=== PATIENT | female | born 1940 | race Caucasian/White ===

== ENCOUNTER 2019-10-20 07:20 | Emergency (ER) | payer MEDICAID, SELFPAY ==
[2019-10-20 07:23] VITALS: BP 178/83; PULSE 71; RESP 16; TEMP 36.6; O2SAT 98; BMI 25.7
--- NOTE | 2019-10-20 07:42 | US_ITS ---
STUDY: ULTRASOUND TRANSVAGINAL CLINICAL: Female, 79 years old. Dysfunctional uterine bleeding. TECHNIQUE: Transvaginal COMPARISON: None. FINDINGS: Normal uterine size measuring 5.4 x 4.8 x 2.1 cm. Anteverted. There are no myometrial masses. Vascular calcifications are noted. Normal endometrial thickness measuring 1 mm. There are no endometrial masses, and there is no fluid in the endometrial cavity. Normal uterine cervix. Right ovary obscured by bowel gas. Left ovary 5.5 x 4.3 x 3.8 cm. It contains a 4.0 x 4.0 x 3.4 cm simple cyst. Appropriate blood flow to the adjacent ovarian parenchyma. There is no free fluid in the pelvis. US/Transvaginal Non- IMPRESSION: No etiology for dysfunctional vaginal bleeding identified. 4.0 cm simple cyst left ovary. Unless prior''s are available showing this is chronic and unchanged, suggest follow-up ultrasound in 4-6 months to ensure this is not enlarging. Statistically this is most likely benign and incidental. Right ovary obscured. Electronically Signed: Christo Carmichael, at 9:59 EST Tel , Service support ,
--- NOTE | 2019-10-20 08:03 | ED.DCSUM_ITS ---
History of Present Illness Chief Complaint: Vag Bleeding Informant: Patient, Family Onset: Today Maximum Severity: Mild Narrative: Patient complains of vaginal bleeding spotting she noted this morning, she has history of a pessary, [employer] evaluation about 6 months ago unremarkable she is having no abdominal pain no vomiting no fever cough, normal bowel bladder habits no bruising no blood per rectum or urine Past Medical History - Allergies and Home Meds Allergies/Adverse Reactions: Allergies Unable to Assess Allergy (Verified 10/20/19 07:23) pt states there are a couple but unsure what they are Primary Care Physician: Jahaira Webb MD [Primary Care Provider] - Past Medical History: - Smoking Status: Never smoker Review of Systems ROS: - Fibroid disorder and as above General: Reports: - - Gentle spotting only. Denies: Chills, Fever, Sweats Eyes: Denies: Visual changes - bilaterally, Diplopia ENT: Denies: Rhinorrhea, Sore throat Cardiovascular: Denies: Chest pain, Palpitations Respiratory: Denies: Dyspnea, Cough, Dyspnea on exertion Gastrointestinal: Denies: Abdominal pain, Nausea, Vomiting, Diarrhea, Melena, Hematochezia Genitourinary: Denies: Dysuria, Hematuria, Frequency Musculoskeletal: Denies: Back pain, Extremity Pain Skin: Denies: Rash, Wounds Neurological: Denies: Headache, Weakness, Numbness Physical Exam Vital Signs/Narrative: Vital Signs Temp Pulse Resp BP Pulse Ox 10/20/19 07:23 97.9 F 71 16 178/83 H 98 General: Well nourished, Well developed, No Acute Distress Head: Normocephalic, Atraumatic Eyes: Perrl, EOMI ENT: Moist mucous membranes, No rhinorrhea Neck: Supple, Nontender Cardiovascular: Regular rate, Regular rhythm, No murmurs Respiratory: No distress, CTA bilaterally, Chest nontender Abdomen: Soft, Nontender, Nondistended, Normal bowel sounds : - - Pelvic exam with nurse pad hand shows an abraded area over the right labia minor Sabrina, more toward the vaginal mucosa, pessary was removed there was no obvious signs of pain or bleeding in the vaginal vault her cervix appeared very atrophied hard to identify there was no obvious mass pain bleeding or fullness to bimanual exam Back: Nontender, Normal Inspection Extremities: Nontender, No edema Skin: Normal color, No rash Neurological: Alert, Oriented x3, Cranial nerves II-XII grossly intact, Normal Strength, Normal Sensation Psychological: Normal affect, Normal Mood Diagnostic/Tx/Re-eval - Medical Decision Making Clinical exam and vital signs are unremarkable she is resting comfortably bed she has absent abdominal pain she did show me her vaginal pad and there is a spot of blood on it brown now she is currently not having any major bleeding no pain she did remove the pessary and this is what caused the bleeding, I expl ained to her she would likely require pelvic exam she was not really excited about that screening labs ultrasound Patient screening labs ultrasound unremarkable she is resting comfortably bed explained all the above to her at this time she will avoid using the pessary, she will use antibiotic ointment to the vaginal mucosa follow-up with her photographic process worker in a few days and return for change in symptoms, she indicates she will generally have no trouble not using her pessary Stable home Final impression vaginal bleeding spotting, vaginal abrasion use of pessary ED Disposition - Plan for ED Patient: Diagnosis: Vaginal bleeding Instructions: VAGINAL TEAR (Non-obstetric) Referrals: Jahaira Webb MD [Primary Care Provider] - Additional Instructions: Do not use your pessary try to use antibiotic ointment to vaginal tissue, follow-up with her photographic process worker in a few days
[2019-10-20 08:10] LABS: Absolute Lymphocyte Count 1.93 X10^3/uL (0.83-4.51); Absolute Neutrophil Count 3.8 X10^3/uL (2.0-7.7); Basophil# 0.06 X10^3/uL; Basophil% 0.9 % (0-1); Eosinophil# 0.06 X10^3/uL; Eosinophils% 0.9 % (0-5); Hematocrit 38.1 % (37-47); Hemoglobin 12.6 g/dL (12.0-15.0); Lymphocyte # 1.93 X10^3/ul (4.0); Lymphocyte % 29.6 % (19-41); Mean Corp Hgb Conc 33.1 g/dL (32-36); Mean Corpuscular Hgb 30.4 pg (27.0-32.0); Monocyte# 0.62 X10^3/uL; Monocyte% 9.5 % (0-10); NRBC Flagged by Analyzer 0 % (0-5); Neutrophil # 3.81 X10^3/uL (2.7-7.7); Neutrophil % 58.5 % (47-70); Platelet Count 233 K/mm3 (150-450); RBC Distribution Width CV 13.7 % (11.6-14.6); RBC Distribution Width SD 46.6 fl (35.1-43.9); Red Blood Count 4.14 M/mm3 (4.2-5.4); White Blood Count 6.5 K/mm3 (4.4-11.0)
[2019-10-20] MEDS: 0.9% Normal Saline 1,000 ML 125 ML IV (08:14)
[2019-10-20 08:23] LABS: International Normalized Ratio 1.2; Prothrombin Time (Protime)PT. 15.3 SECONDS (11.7-14.9)
[2019-10-20 08:44] LABS: Anion Gap 4 (5-15); BUN 20 mg/dL (7-18); BUN/Creat Ratio 28.4 RATIO (10-20); Calcium,Total 8.8 mg/dL (8.5-10.1); Chloride 105 mmol/L (98-107); EST Glomerular Filtration Rate 85 mL/min (>60); Est Glom Filt Rate - Afr Amer 103 mL/min (>60); Estimated Creatinine Clearance 36.08 ml/min; Glucose 100 mg/dL (74-106); Potassium 4.6 mmol/L (3.5-5.1); Sodium Level 137 mmol/L (136-145)
[2019-10-20 10:38] VITALS: BP 131/67; PULSE 71; RESP 15; O2SAT 98
== END 2019-10-20 10:40 | disposition home or self-care (01) ==
PROVIDERS: Emergency Provider Emergency Medicine; Family Provider Internal Medicine; PCP Internal Medicine
DX: N93.9 Abnormal uterine and vaginal bleeding, unspecified (principal); S30.814A Abrasion of vagina and vulva, initial encounter; Y76.2 Prosthetic and other implants, materials and accessory obstetric and gynecological devices associated with adverse incidents; Y93.9 Activity, unspecified; Y92.9 Unspecified place or not applicable
CPT/HCPCS: 76830; 80048; 85025; 85610; 96360; 96361; 99283; J7030

== ENCOUNTER → 2020-08-18 16:24 | Outpatient (CLI) | payer MEDICAID, SELFPAY ==
--- NOTE | 2020-08-18 16:29 | CT_ITS ---
ACR Level 3 findings have been noted. An addendum which confirms receipt of the report will follow. HISTORY: LEFT KNEE VALGUS DEFORMITY-MAYI PROTOCOL TECHNIQUE: Noncontrast bone protocol CT of the left lower extremity was performed without contrast utilizing preoperative MAYI protocol. 2D reformats were performed by the technologist. Number of images including paperwork: [id number]. A radiation dose optimization technique was used for this scan. COMPARISON: None FINDINGS: BONES: No acute fracture. JOINTS: No subluxation. Degenerative changes noted in the visible spine, and left sacroiliac joint, symphysis pubis, left hip, left knee and left ankle. Degenerative changes are severe in the medial and patellofemoral compartment of the knee. Large left knee joint effusion. Multiple large joint bodies. SOFT TISSUES: Unremarkable. FOREIGN BODY: No radiopaque foreign body. PELVIC ORGANS: 4 cm left ovarian cyst. Senescent calcifications of the uterus. Pessary partially visualized. Small fat-containing umbilical hernia partially visible. CT/Extremity Lower without Contra IMPRESSION: No acute fracture or subluxation. Large left knee joint effusion. Left hip and left knee osteoarthritis. 4 cm left ovarian cyst. Gynecologic evaluation recommended. Individualized dose optimization techniques were used for this CT. at 0132 Reported and signed by: Hemalatha Kumari MD Electronically Signed: Hemalatha Kumari MD at 1:32 EDT Tel , Service support ,
== END ==
PROVIDERS: PCP Internal Medicine; Referring Provider Physician Assistant; Visit Provider Physician Assistant
DX: M21.062 Valgus deformity, not elsewhere classified, left knee (principal)
CPT/HCPCS: 73700

== ENCOUNTER 2020-09-21 11:04 | Observation (INO) | payer MEDICAID, SELFPAY ==
--- NOTE | 2020-08-24 10:17 | EKG12_ITS ---
Test Reason : PRE OP Blood Pressure : / mmHG Vent. Rate : 060 BPM Atrial Rate : 060 BPM P-R Int : 160 ms QRS Dur : 072 ms QT Int : 402 ms P-R-T Axes : 053 -04 069 degrees QTc Int : 402 ms Normal sinus rhythm Normal ECG Confirmed by GAGE MONTES, DINORAH ([id number]), greeting card editor EUSEBIA GONZALEZ ([id number]) on 08/25/2020 9:10:19 AM Referred By: Isaiah Méndez Confirmed By:DINORAH ALMONTE MD
[2020-08-24 11:15] LABS: Absolute Lymphocyte Count 1.93 X10^3/uL (0.83-4.51); Absolute Neutrophil Count 3.1 X10^3/uL (2.0-7.7); Basophil# 0.07 X10^3/uL; Basophil% 1.2 % (0-1); Eosinophil# 0.06 X10^3/uL; Hematocrit 37.5 % (37-47); Lymphocyte # 1.93 X10^3/ul (4.0); Lymphocyte % 32.1 % (19-41); Mean Corpuscular Volume 96.9 fL (81-99); Mean Platelet Vol. 10.6 fl (6.2-12.0); Monocyte# 0.79 X10^3/uL; Monocyte% 13.1 % (0-10); NRBC Flagged by Analyzer 0 % (0-5); Neutrophil # 3.13 X10^3/uL (2.7-7.7); Neutrophil % 51.9 % (47-70); Platelet Count 261 K/mm3 (150-450); RBC Distribution Width CV 15.1 % (11.6-14.6); RBC Distribution Width SD 53.7 fl (35.1-43.9); Red Blood Count 3.87 M/mm3 (4.2-5.4)
[2020-08-24 11:32] LABS: International Normalized Ratio 1.1; Prothrombin Time (Protime)PT. 13.6 SECONDS (11.7-14.9)
[2020-08-24 11:33] LABS: Partial Thromboplast Time 38.9 Seconds (24.1-36.2)
[2020-08-24 12:00] LABS: Anion Gap 6 (5-15); BUN 19 mg/dL (7-18); BUN/Creat Ratio 29.4 RATIO (10-20); Chloride 98 mmol/L (98-107); Creatinine, Serum 0.65 mg/dL (0.55-1.02); EST Glomerular Filtration Rate 94 mL/min (>60); Est Glom Filt Rate - Afr Amer 113 mL/min (>60); Glucose 90 mg/dL (74-106); Potassium 4.5 mmol/L (3.5-5.1); Sodium Level 134 mmol/L (136-145)
[2020-08-24 12:06] LABS: AST(SGOT) 34 U/L (15-37); Alanine Aminotransfer ALT/SGPT 36 U/L (13-56); Albumin, Serum 3.5 g/dL (3.2-5.0); Alkaline Phosphatase 63 U/L (45-117); Bilirubin, Direct 0.15 mg/dL (0.00-0.30); Globulin 3.8 g/dL (2.2-4.2); Magnesium 2.2 mg/dL (1.6-2.6); Protein, Total 7.3 g/dL (6.4-8.2); Thyroid Stim Hormone (TSH) 8.62 uIU/mL (0.358-3.74)
[2020-09-21] VITALS (12 sets, daily range): BP systolic 137–178; BP diastolic 53–85; PULSE 61–79; RESP 16–18; TEMP 36.1–36.4; O2SAT 94–100; BMI 25.9
[2020-09-21] MEDS: Acetaminophen 500 MG Tablet 1000 MG PO ×3 (10:42→20:34)
[2020-09-21] MEDS: Gabapentin 600 MG Tablet PO (10:42)
[2020-09-21] MEDS: Lactated Ringers 1,000 ML 100 ML IV (10:44)
[2020-09-21 11:00] LABS: Bedside Glucose 72 mg/dL (70-110)
[2020-09-21] MEDS: Cefazolin 2 GM in 0.9% Normal Saline 100 ML IV (11:08)
--- NOTE | 2020-09-21 11:30 | KNEE_PTH ---
PATIENT: TONY WILKINS LOC: [facility] U#:[id number] AGE/SX: 80/F ROOM: [facility]305 RE09/21/[address]: Dr. Isaiah Méndez DO : 1940 BED: 1 DIS: 09/22/2020 SPEC #: [id number] RECD: 09/21/20 14:52 STATUS: CUCO REQ #: [id number] SARWAT: 09/21/20 11:[address]: Isaiah Méndez DEPT: SURGICAL PATHOLOGY RECD BY: Kaitlyn Foy ENTERED: 09/22/20 07:45 SP TYPE: TOTAL KNEE OTHR DR: Dr. Jahaira Webb MD Tissues: Knee, NOS Procedures: Decalcification bone/plaque Surgery Specimen Level IV HEADER OPERATION: ERAS, total knee replacement robotic arm assist PRE-OP DIAGNOSIS: Osteoarthritis left knee TISSUE SUBMITTED: Left knee bone and soft tissue MICROSCOPIC DIAGNOSIS Bone and soft tissue of left knee, total knee resection: Severe degenerative joint disease. Loose body. AM:mukund 09/25/20 MICROSCOPIC DESCRIPTION Slides are reviewed. GROSS DESCRIPTION Received is one container designated bone and soft tissue left knee. The specimen consists of multiple fragments of sanon-yellow bone. No soft tissue is identified. Multiple pieces of bone consistent with loose bodies are also noted. The pieces of bone including loose bodies measure in aggregate 11 x 10 x 3 cm. A number of bony fragments contain articular surfaces consistent with tibial plateau and femoral condyle and displaying prominent osteophyte formation, eburnation, and bone erosion. Director Utilization Management sections are submitted in two cassettes after decalcification. Cassette 2 contains a section from loose bodies. / SJ:mukund 09/22/20 TC: 5 CPT: 69347, 17715
[2020-09-21] MEDS: Lactated Ringers 1,000 ML 125 ML IV (12:31)
--- NOTE | 2020-09-21 12:46 | PCM.OPRPT ---
Report of Operation Date of Procedure: 09/21/20 Pre-Operative Diagnosis: OA left knee Post-Operative Diagnosis: same Surgery/Procedure Performed:: Left TKR transportation superintendent: Jeancarlos Mariano Type of Anesthesia:: Spinal Anesthesiologist: Angel Ames Specimen's removed: bone - Admit VTE Documentation VTE Present on Admission: No VTE Mechan Device Prophylaxis: SCD's, Thigh High WANDY Hose VTE Pharm Prophylaxis ordered?: Yes
--- NOTE | 2020-09-21 13:48 | RAD_ITS ---
STUDY: X-RAY - LEFT KNEE REASON FOR EXAM: Female, 80 years old. Post op left knee TECHNIQUE: 2 view(s) of the knee. COMPARISON: None. FINDINGS: Normal visualized distal femur. Normal visualized proximal tibia and fibula. Normal proximal tibiofibular articulation. The patient is status post total knee replacement. There is good alignment. Postoperative soft tissue changes. RAD/Knee 1 or 2 Views IMPRESSION: Status post total knee replacement. There is good alignment. Postoperative soft tissue changes. Electronically Signed: Isiah Gama, at 14:20 EST , Service support ,
[2020-09-21 14:40] LABS: Hematocrit 33.5 % (37-47); Mean Corp Hgb Conc 32.8 g/dL (32-36); Mean Corpuscular Hgb 31.6 pg (27.0-32.0); Mean Corpuscular Volume 96.3 fL (81-99); Mean Platelet Vol. 9.7 fl (6.2-12.0); Platelet Count 272 K/mm3 (150-450); RBC Distribution Width SD 49.2 fl (35.1-43.9); Red Blood Count 3.48 M/mm3 (4.2-5.4); White Blood Count 8.4 K/mm3 (4.4-11.0)
[2020-09-21 14:59] LABS: Anion Gap 8 (5-15); BUN 8 mg/dL (7-18); BUN/Creat Ratio 14.9 RATIO (10-20); Calcium,Total 8.7 mg/dL (8.5-10.1); Chloride 104 mmol/L (98-107); Creatinine, Serum 0.54 mg/dL (0.55-1.02); EST Glomerular Filtration Rate 116 mL/min (>60); Est Glom Filt Rate - Afr Amer 141 mL/min (>60); Estimated Creatinine Clearance 35.49 ml/min; Glucose 118 mg/dL (74-106); Potassium 3.8 mmol/L (3.5-5.1); Sodium Level 138 mmol/L (136-145)
[2020-09-21] MEDS: Aspirin 81 MG TAB.CHEW PO (16:37)
[2020-09-21] MEDS: Cefazolin 1 GM/50 ML BAG IV (19:15)
[2020-09-21] MEDS: Ondansetron 4 MG/2 ML Vial IV (19:29)
[2020-09-21] MEDS: Senna/Docusate Sodium 1 Tablet 2 TABLET PO (20:34)
[2020-09-21] MEDS: Atorvastatin Calcium 10 MG Tablet PO (20:34)
[2020-09-22 03:10] VITALS: BP 151/77; PULSE 62; RESP 16; TEMP 36.2; O2SAT 99
[2020-09-22] MEDS: Cefazolin 1 GM/50 ML BAG IV (03:16)
[2020-09-22] MEDS: Thyroid 15 MG Tablet 30 MG PO (06:01)
[2020-09-22] MEDS: Acetaminophen 500 MG Tablet 1000 MG PO ×2 (06:01→13:36)
[2020-09-22 06:58] LABS: Hematocrit 35.7 % (37-47); Hemoglobin 11.4 g/dL (12.0-15.0); Mean Corp Hgb Conc 31.9 g/dL (32-36); Mean Corpuscular Hgb 31.2 pg (27.0-32.0); Mean Corpuscular Volume 97.8 fL (81-99); Mean Platelet Vol. 9.5 fl (6.2-12.0); Platelet Count 267 K/mm3 (150-450); RBC Distribution Width CV 13.7 % (11.6-14.6); RBC Distribution Width SD 49.6 fl (35.1-43.9); Red Blood Count 3.65 M/mm3 (4.2-5.4); White Blood Count 8.9 K/mm3 (4.4-11.0)
[2020-09-22 07:04] VITALS: BP 122/60; PULSE 60; RESP 16; TEMP 36.3; O2SAT 99
[2020-09-22] MEDS: oxyCODONE 5 MG Tablet PO (07:07)
[2020-09-22 07:20] LABS: Anion Gap 5 (5-15); BUN 6 mg/dL (7-18); Chloride 99 mmol/L (98-107); EST Glomerular Filtration Rate 102 mL/min (>60); Est Glom Filt Rate - Afr Amer 124 mL/min (>60); Estimated Creatinine Clearance 35.49 ml/min; Glucose 112 mg/dL (74-106); Potassium 3.8 mmol/L (3.5-5.1); Sodium Level 131 mmol/L (136-145)
--- NOTE | 2020-09-22 07:54 | PN.ORTHO_ITS ---
Subjective: Patient sitting at bedside eating breakfast. Patient states her pain is very well managed. Patient denies chest pain, shortness of breath, calf pain, nausea vomiting. Patient has no other complaints at this time. She states she is ready for discharge home. Objective: Dressing is clean dry intact. Negative signs or symptoms of DVT. Vital signs and labs reviewed noted in medical records. Patient is afebrile. Patient is in no respiratory distress speaking in full sentences. - Physical Exam Vitals/I&O's: Vital Signs Temp Pulse Resp BP Pulse Ox 97.3 F L 60 16 122/60 H 99 09/22/20 07:04 09/22/20 07:04 09/22/20 07:04 09/22/20 07:04 09/22/20 07:04 Oxygen Flow Rate (L/min) 6 Oxygen Delivery Method Room Air Weight: 64.2 kg Body Mass Index (BMI) 25.9 Intake and Output for Last 24 Hours 09/20/20 09/21/20 09/22/20 23:59 23:59 23:59 Intake Total 2767.34 / 2767.34 116.66 / 116.66 Balance 2767.34 / 2767.34 116.66 / 116.66 General: Alert, Oriented x3, Cooperative HEENT: PERRLA Oral: Moist Mucosa Neurological: Cranial nerves II-XII grossly intact Psych/Mental Status: Normal Affect, Alert and oriented to time, place, person, mood and affect Laboratory Results 09/21/20 10:33: POC Glucose 72 09/21/20 14:25: WBC 8.4, RBC 3.48 L, Hgb 11.0 L, Hct 33.5 L, MCV 96.3, MCH 31.6, MCHC 32.8, RDW Std Deviation 49.2 H, RDW Coeff of Evangelina 14.0, Plt Count 272, MPV 9.7 09/21/20 14:25: Sodium 138, Potassium 3.8, Chloride 104, Carbon Dioxide 26.0, Anion Gap 8, BUN 8, Creatinine 0.54 L, Estim Creat Clear Calc 35.49, Est GFR (MDRD) Af Amer 141, Est GFR (MDRD) Non-Af 116, BUN/Creatinine Ratio 14.9, Glucose 118 H, Calcium 8.7 09/22/20 06:44: WBC 8.9, RBC 3.65 L, Hgb 11.4 L, Hct 35.7 L, MCV 97.8, MCH 31.2, MCHC 31.9 L, RDW Std Deviation 49.6 H, RDW Coeff of Evangelina 13.7, Plt Count 267, MPV 9.5 09/22/20 06:44: Sodium 131 L, Potassium 3.8, Chloride 99, Carbon Dioxide 27.0, Anion Gap 5, BUN 6 L, Creatinine 0.60, Estim Creat Clear Calc 35.49, Est GFR (MDRD) Af Amer 124, Est GFR (MDRD) Non-Af 102, BUN/Creatinine Ratio 10.0, Glucose 112 H, Calcium 9.0 Current Medications Acetaminophen (Acetaminophen 500 Mg Tablet) 1,000 mg PO Q8 [facility] Last Admin: 09/22/20 06:01 Dose: 1,000 mg Documented by: Aspirin (Aspirin 81 Mg Tab.Chew) 81 mg PO BIDCM [facility] Last Admin: 09/21/20 16:37 Dose: 81 mg Documented by: Atorvastatin Calcium (Atorvastatin Calcium 10 Mg Tablet) 10 mg PO QHS [facility] Last Admin: 09/21/20 20:34 Dose: 10 mg Documented by: Citalopram Hydrobromide (Citalopram 10 Mg Tablet) 10 mg PO DAILY PRN PRN Reason: ANXIETY Losartan Potassium (Losartan Potassium 25 Mg Tablet) 25 mg PO DAILY [facility] Ondansetron HCl (Ondansetron 4 Mg/2 Ml Vial) 4 mg IV Q8H PRN PRN PRN Reason: NAUSEA Last Admin: 09/21/20 19:29 Dose: 4 mg Documented by: Oxycodone HCl (Oxycodone 5 Mg Tablet) 5 - 10 mg PO Q4H PRN PRN PRN Reason: Pain Score 4-10 Last Admin: 09/22/20 07:07 Dose: 5 mg Documented by: Promethazine HCl (Promethazine 25 Mg/Ml Syringe) 12.5 mg IM Q6H PRN PRN; Protocol PRN Reason: NAUSEA/VOMITING Senna/Docusate Sodium (Senna/Docusate Sodium 1 Tablet) 2 tablet PO BID [facility] Last Admin: 09/21/20 20:34 Dose: 2 tablet Documented by: Sodium Chloride (0.9% Saline Lock 10 Ml Syringe) 10 - 40 ml IV UD PRN PRN Reason: SALINE FLUSH Thyroid (Thyroid 15 Mg Tablet) 15 mg PO SuMoWeFrSa@0600 AISLINN Thyroid (Thyroid 15 Mg Tablet) 30 mg PO TuTh@0600 [facility] Last Admin: 09/22/20 06:01 Dose: 30 mg Documented by: Medical Necessity - Tobacco Use Smoking Status: Never smoker Tobacco Use: Non-smoker Assessment/Plan Status post left total knee arthroplasty Plan 1. Continue all pain medications as prescribed 2. Continue physical therapy, weight-bear as tolerated with walker 3. Aspirin 81 mg 1 p.o. every 12 hours x30 days for postop DVT prophylaxis 4. Encourage incentive spirometry 5. Discharge home today after p.m. therapy 6. Continue outpatient physical therapy at [facility] 7. Follow-up as scheduled see pink sheet
--- NOTE | 2020-09-22 08:02 | PCM.DC.TKR ---
Discharge Diet: No Restrictions Discharge Activity: May Not Drive, May Shower, Use Walker May shower in (days): 3 Ice area for (Minutes): 20 - each hour while awake. Weight Bearing Status: Weight bearing as tolerated Elevate: Operative Extremity Additional Activity Instructions:: Wear elastic stockings for 2 weeks after your surgery. Call your doctor if your incision/area has: Continuous Slow Oozing, Sudden Increased Bleeding, Increased Pain/ Swelling, Increased Redness, Foul Smelling Discharge Call your doctor if you observe: Fever of 101 or Higher, Coldness, Increased Pain - in extremity, Numbness or Tingling, Change in Color, Calf discomfort, Uncontrolled pain Change Dressing in (Days):: 0 - and daily as needed. Remove Dressing in (days):: 8 Cleanse incision/area with: Soap & Water Allergies/Adverse Reactions: Allergies ciprofloxacin [From Cipro] Adverse Reaction (Verified 09/21/20 10:09) Nausea/Vom/Diarrhea sulfamethoxazole [From Bactrim] Adverse Reaction (Verified 09/21/20 10:09) Nausea/Vom/Diarrhea trimethoprim [From Bactrim] Adverse Reaction (Verified 09/21/20 10:09) Nausea/Vom/Diarrhea Medications to take at Discharge Albuterol IH (ProAir) [Proair Hfa] 1 - 2 puff INHALATION Q6H PRN PRN 08/19/20 Citalopram [Celexa] 10 mg PO DAILY PRN 08/19/20 Simvastatin [Zocor] 20 mg PO QHS 08/19/20 Thyroid,Pork [Surgical Elastic Knitter Hand Frame Thyroid] 15 mg PO SUMOWEFRSA 08/19/20 Thyroid,Pork [Surgical Elastic Knitter Hand Frame Thyroid] 30 mg PO TUTH 08/19/20 Valsartan [Diovan] 40 mg PO DAILY 08/19/20 Acetaminophen [Tylenol] 1,000 mg PO Q8 #90 tab 09/22/20 Aspirin [Aspirin, Baby] 81 mg PO BIDCM #60 tab.chew 09/22/20 Oxycodone [Oxyir] 5 - 10 mg PO Q4H PRN PRN 7 Days #84 tab 09/22/20 Senna/Docusate Sodium [Senokot-S] 2 tab PO BID tab 09/22/20 The following prescriptions were given: Aspirin [Aspirin, Baby] 81 mg PO BIDCM #60 tab.chew Transmission Status: Pending to [facility] Oxycodone [Oxyir] 5 - 10 mg PO Q4H PRN PRN 7 Days #84 tab PRN Reason: Pain Score 4-10 Transmission Status: Sent to [facility] Acetaminophen [Tylenol] 1,000 mg PO Q8 #90 tab Transmission Status: Pending to [facility] Primary Care Physician: Jahaira Webb MD [Primary Care Provider] - Test Results: Test results from this visit will be discussed in further detail at your follow-up appointment, if applicable. Please Follow Up With: Isaiah Méndez DO
[2020-09-22 08:10] VITALS: BP 103/56; PULSE 67; RESP 16; TEMP 36.4; O2SAT 96
[2020-09-22] MEDS: Aspirin 81 MG TAB.CHEW PO (08:12)
[2020-09-22] MEDS: Losartan Potassium 25 MG Tablet PO (08:12)
[2020-09-22] MEDS: Senna/Docusate Sodium 1 Tablet 2 TABLET PO (08:12)
--- NOTE | 2020-09-22 10:00 | CASEMGMT ---
JAMIE DANIEL Face to Face with patient for initial transition planning/care coordination assessment. RN MARÍA introduced self and role at [facility]. Patient sitting in chair, alert and oriented. Patient willing to participate in assessment and is able to answer all questions appropriately. Care providers, pharmacy, and demographics verified. Patient wishes to discharge home and would like [facility] for therapy. Patient states she has no further needs or concerns at this time. CM to follow for discharge planning needs that may arise. PCP: Tracey Specialists: Dev Koenig [facility]: [facility] [place] Insurance: Book&Table Prescription Benefit: yes Living Will/HPOA: none LNOK: , daughter Living Arrangements: patient lives with and daughter in a 2 story home with bed and bath on first floor. Patient has one step to enter the home. Patient was independent prior to surgery Transportation: Driving service DME/HHC: Patient states she has raised toilet seat, cane, walker, rollator, and grab bars. Patient is interested in home therapy and has no preference of company. [place] area that [place] difficult to staff, CM will assist with HHC setup. Disposition Plan: Patient to discharge home with HHC, family support, and follow-up plans in place. Adele SCRUGGS, RN, CM
--- NOTE | 2020-09-22 10:45 | CASEMGMT ---
Addendum entered by Adele Wagner 09/22/20 13:03: RN MARÍA received call from [facility] and they are able to accept the patient. RN CM updated patient. Original Note: JAMIE DANIEL called [facility] for home therapy referral. Felicia at [facility] states that they are not able to staff referral at this time. JAMIE DANIEL sent referral to [facility] and they are not able to staff as well. JAMIE DANIEL sent referral to [facility] and awaiting call back. CM will continue to follow this patient and plan for a safe discharge.
--- NOTE | 2020-09-22 11:36 | PHA.DC.MC ---
Pharmacy Service has performed discharge medication reconciliation and counseling for this patient. 1. ACETAMINOPHEN 1000MG PO Q8H 2. ASPIRIN 81MG PO BIDCM 3. OXYCODONE 5-10MG PO Q4H PRN PAIN 4-10 4. SENNA/DOCUSATE 2T PO BID The patient's discharge medication list was reviewed for discrepancies and discrepancies were resolved. Home Medications Albuterol IH (ProAir) [Proair Hfa] 1 - 2 puff INHALATION Q6H PRN PRN 08/19/20 Citalopram [Celexa] 10 mg PO DAILY PRN 08/19/20 Simvastatin [Zocor] 20 mg PO QHS 08/19/20 Thyroid,Pork [Qa Architect Thyroid] 15 mg PO SUMOWEFRSA 08/19/20 Thyroid,Pork [Qa Architect Thyroid] 30 mg PO TUTH 08/19/20 Valsartan [Diovan] 40 mg PO DAILY 08/19/20 Acetaminophen [Tylenol] 1,000 mg PO Q8 #90 tab 09/22/20 Aspirin [Aspirin, Baby] 81 mg PO BIDCM #60 tab.chew 09/22/20 Oxycodone [Oxyir] 5 - 10 mg PO Q4H PRN PRN 7 Days #84 tab 09/22/20 Senna/Docusate Sodium [Senokot-S] 2 tab PO BID tab 09/22/20 The patient was counseled on the following discharge medications and changes in medications for homegoing were reviewed. The Reason for Use, instructions for use, and potential side effects were reviewed for all new medications. The patient's questions regarding all of their medications were answered. The patient was able to verbally demonstrate an understanding of their discharge medications.
[2020-09-22 13:40] VITALS: BP 104/58; PULSE 69; RESP 18; TEMP 36.7; O2SAT 100
== END 2020-09-22 14:05 | disposition home health service (06) ==
LOC: MS3 14:11
PROVIDERS: Anesthesiology; Admitting Provider Orthopaedic Surgery; PCP Internal Medicine; Referring Provider Orthopaedic Surgery; Visit Provider Orthopaedic Surgery
PROC: 0SRD0JZ Replacement of Left Knee Joint with Synthetic Substitute, Open Approach (ICD-10-PCS; CPT 27447; principal; 2020-09-21 11:00)
DX: M17.12 Unilateral primary osteoarthritis, left knee (principal); E07.9 Disorder of thyroid, unspecified; I10 Essential (primary) hypertension; Z79.899 Other long term (current) drug therapy; Z20.828 Contact with and (suspected) exposure to other viral communicable diseases; Z86.19 Personal history of other infectious and parasitic diseases; J45.909 Unspecified asthma, uncomplicated; E78.00 Pure hypercholesterolemia, unspecified; F41.9 Anxiety disorder, unspecified
CPT/HCPCS: 01992; 27447; 64447; S2900; 36415; 73560; 80048; 80076; 82962; 83735; 84443; 85025; 85027; 85610; 85730; 87081; 87635; 88305; 88311; 93005; 96361; 96365; 96366; 96375; 97110; 97116; 97162; 97166; 97530; 97535; 99218; C1776; C9803; J7120; G0378; G0379; J2405; U0003

== ENCOUNTER → 2021-03-18 16:05 | Outpatient (CLI) | payer SELFPAY ==
[2020-09-21 15:34] VITALS: BMI 25.9
--- NOTE | 2021-03-18 16:09 | CT_ITS ---
STUDY: CT RIGHT LOWER EXTREMITY REASON FOR EXAM: Varus deformity, surgical planning. TECHNIQUE: Transaxial CT imaging of the lower extremity was performed. Coronal and sagittal images were reformatted. Individualized dose optimization techniques were used for this CT. COMPARISON: None. FINDINGS: Knee: There is moderate joint space narrowing of the medial femorotibial compartment (coronal reconstruction 30). There are small marginal osteophytes of the lateral femoral condyle without joint space narrowing of the lateral femorotibial compartment. There are small marginal osteophytes and moderate joint space narrowing of the lateral aspect of the patellofemoral articulation (axial image 312). There is mild subchondral cystic change at the proximal tibiofibular articulation. There is a small joint effusion. The quadriceps tendon is grossly normal. The patellar tendon is grossly normal. Normal Hoffa''s fat pad. There is vascular calcification. Hip: There are small marginal osteophytes and joint space narrowing of the right hip (coronal reconstruction 61). There are calcified uterine fibroids (sagittal reconstructions 96-102). Ankle: Normal tibiotalar, posterior subtalar and calcaneocuboid articulations. There is joint space narrowing of the talonavicular articulation (sagittal reconstruction 31). There is a posterior calcaneal enthesophyte. CT/Extremity Lower without Contra IMPRESSION: Osteoarthritis of the right knee. Electronically Signed: Elmer Olea MD at 10:16 EDT Tel , Service support ,
== END ==
PROVIDERS: PCP Internal Medicine; Referring Provider Physician Assistant; Visit Provider Physician Assistant
DX: M17.11 Unilateral primary osteoarthritis, right knee (principal); M21.161 Varus deformity, not elsewhere classified, right knee
CPT/HCPCS: 73700

== ENCOUNTER 2021-03-29 05:07 | Day surgery (SDC) | payer MEDICAID, SELFPAY ==
[2020-09-21 15:34] VITALS: BMI 25.9
--- NOTE | 2021-03-22 12:46 | EKG12_ITS ---
Test Reason : PRE OP Blood Pressure : / mmHG Vent. Rate : 067 BPM Atrial Rate : 067 BPM P-R Int : 150 ms QRS Dur : 072 ms QT Int : 384 ms P-R-T Axes : 079 -06 068 degrees QTc Int : 405 ms Normal sinus rhythm Inferior infarct , age undetermined Abnormal ECG Confirmed by ESTEFANY MONTES, DIANDRA ([id number]), restaurant expeditor EUSEBIA GONZALEZ ([id number]) on 03/23/2021 9:04:56 AM Referred By: Isaiah Méndez Confirmed By:DIANDRA ALLISON MD
[2021-03-22 13:26] LABS: Hematocrit 37.1 % (37-47); Hemoglobin 12.2 g/dL (12.0-15.0); Mean Corp Hgb Conc 32.9 g/dL (32-36); Mean Corpuscular Hgb 30.5 pg (27.0-32.0); Mean Corpuscular Volume 92.8 fL (81-99); Platelet Count 275 K/mm3 (150-450); RBC Distribution Width CV 14.9 % (11.6-14.6); RBC Distribution Width SD 51.3 fl (35.1-43.9); White Blood Count 6.8 K/mm3 (4.4-11.0)
[2021-03-22 13:51] LABS: Anion Gap 4 (5-15); BUN 14 mg/dL (7-18); BUN/Creat Ratio 15.5 RATIO (10-20); Calcium,Total 9.3 mg/dL (8.5-10.1); Chloride 103 mmol/L (98-107); Creatinine, Serum 0.91 mg/dL (0.55-1.02); EST Glomerular Filtration Rate 63 mL/min (>60); Est Glom Filt Rate - Afr Amer 77 mL/min (>60); Glucose 116 mg/dL (74-106); Potassium 4.1 mmol/L (3.5-5.1); Sodium Level 135 mmol/L (136-145)
[2021-03-22 13:59] LABS: Hemoglobin A1c 5.6 % (3.8-5.6)
[2021-03-22 14:26] LABS: Magnesium 2.2 mg/dL (1.6-2.6); Thyroid Stim Hormone (TSH) 9.24 uIU/mL (0.358-3.74)
[2021-03-29] VITALS (11 sets, daily range): BP systolic 112–177; BP diastolic 50–91; PULSE 57–71; RESP 16–18; TEMP 36.1–36.6; O2SAT 98–100; BMI 26.4
[2021-03-29] MEDS: Lactated Ringers 1,000 ML 100 ML IV (06:21)
[2021-03-29] MEDS: Acetaminophen 500 MG Tablet 1000 MG PO (06:30)
[2021-03-29 06:41] LABS: Bedside Glucose 55 mg/dL (70-110)
[2021-03-29] MEDS: Gabapentin 600 MG Tablet PO (06:45)
[2021-03-29] MEDS: Cefazolin 2 GM in 0.9% Normal Saline 100 ML IV (07:30)
--- NOTE | 2021-03-29 07:30 | KNEE_PTH ---
PATIENT: TONY WILKINS [place] [facility] [place] U[place][id number] AGE/SX: 80/F ROOM: RE03/29/[address]: Dr. Isaiah Méndez DO : 1940 BED: DIS: 03/29/2021 SPEC #: [id number] RECD: 03/29/21 10:09 STATUS: CUCO REEve #: [id number] SARWAT: 03/29/21 07:[address]: Isaiah Méndez DEPT: SURGICAL PATHOLOGY RECD BY: Kaitlyn Foy ENTERED: 03/29/21 12:09 SP TYPE: TOTAL KNEE OTHR DR: MD Jeancarlos Cox PA-C Tissues: Knee, NOS Procedures: Decalcification bone/plaque Surgery Specimen Level IV HEADER OPERATION: ERAS, total knee replacement robotic arm assist PRE-OP DIAGNOSIS: Osteoarthritis right knee TISSUE SUBMITTED: Right knee bone and soft tissue MICROSCOPIC DIAGNOSIS Bone and soft tissue of right knee, total knee resection: Consistent with severe degenerative joint disease. AM:mukund 04/01/2021 MICROSCOPIC DESCRIPTION Slides are reviewed. GROSS DESCRIPTION Received is one container designated bone and soft tissue right knee. The specimen consists of multiple fragments of sanon-yellow bone measuring in aggregate 8 x 9 x 4 cm. No soft tissue is identified. A number of bony fragments contain articular surfaces consistent with tibial plateau and femoral condyle and displaying prominent osteophyte formation, eburnation, and bone erosion. Log Buncher sections are submitted in two cassettes after decalcification. / SJ:mukund 03/29/21 TC:5 CPT: 53606, 63793
--- NOTE | 2021-03-29 09:43 | RAD_ITS ---
STUDY: X-RAY - RIGHT KNEE REASON FOR EXAM: Female, 80 years old. Post op -- AP and Lateral xray of operative knee in PACU TECHNIQUE: 2 view(s) of the knee. COMPARISON: None. FINDINGS: Normal visualized distal femur. Normal visualized proximal tibia and fibula. Normal proximal tibiofibular articulation. The patient is status post total knee replacement. There is good alignment. Postoperative soft tissue changes. RAD/Knee 1 or 2 Views IMPRESSION: Status post total knee replacement. There is good alignment. Postoperative soft tissue changes. Electronically Signed: Isiah Gama MD at 10:10 EDT , Service support ,
[2021-03-29] MEDS: Lactated Ringers 1,000 ML 125 ML IV (10:00)
[2021-03-29] MEDS: proMETHazine 25 MG/ML Syringe 12.5 MG IM (12:03)
--- NOTE | 2021-03-29 12:03 | SUR.PHASEII ---
PATIENT CONTINUES TO BE NAUSEATED. HAD ZOFRAN. RELUCTANT TO MOVE. PHENERGAN 6.25 MG IV GIVEN DUE TO PATIENT'S SMALL SIZE AND AGE. ABLE TO HOLD EACH LEG OFF BED FOR A COUNT OF 10, HAS SENSATION UP TO WAIST. WAIT TILL PATIENT'S NAUSEA IMPROVED, THEN SIT AT SIDE OF BED TO ASSESS IF READY FOR PT/OT EVAL.
--- NOTE | 2021-03-29 13:44 | PCM.OPRPT ---
Report of Operation Date of Procedure: 03/29/21 Pre-Operative Diagnosis: OA right knee Post-Operative Diagnosis: same Surgery/Procedure Performed:: Right TKR Surgeon: Isaiah Méndez recruiter account manager: Jeancarlos Mariano Type of Anesthesia: Spinal Anesthesiologist: Angel Ames Specimen's removed: bone Estimated Blood Loss (mL): 25 cc Fluids Replaced: 1000 ml crystalloid Admit VTE Documentation VTE Present on Admission: No VTE Mechan Device Prophylaxis: SCD's and Thigh High WANDY Hose VTE Pharm Prophylaxis ordered?: Yes
== END 2021-03-29 17:07 ==
LOC: SDC 05:08 → AC 05:19
PROVIDERS: Anesthesiology; PCP Internal Medicine; Referring Provider Orthopaedic Surgery; Visit Provider Orthopaedic Surgery
PROC: 0SRC0JZ Replacement of Right Knee Joint with Synthetic Substitute, Open Approach (ICD-10-PCS; CPT 27447; principal; 2021-03-29 07:00)
DX: M17.11 Unilateral primary osteoarthritis, right knee (principal); M21.161 Varus deformity, not elsewhere classified, right knee; I10 Essential (primary) hypertension; E07.9 Disorder of thyroid, unspecified; J45.909 Unspecified asthma, uncomplicated; E66.3 Overweight; F41.9 Anxiety disorder, unspecified; Z68.27 Body mass index [BMI] 27.0-27.9, adult; E78.00 Pure hypercholesterolemia, unspecified; Z87.19 Personal history of other diseases of the digestive system; Z79.899 Other long term (current) drug therapy
CPT/HCPCS: 01402; 27447; 36415; 73560; 80048; 82962; 83036; 83735; 84443; 85027; 87081; 87426; 88305; 88311; 93005; 97162; C1776; C9803; J7120; J2405